=== PATIENT | male | born 2000 | race Caucasian/White ===

== ENCOUNTER 2025-07-12 13:53 | Emergency (ER) | payer OTHER, SELFPAY ==
--- NOTE | ~2025-07-12 | XR_ITS ---
Clinical history:Struck with mallet at tip of the finger EXAM:X-ray finger second left minimum 2 views TECHNIQUE:4 images of the left second digit were obtained. Comparisons:None available FINDINGS: [ No significant degenerative change.] [ No radiographic evidence for an acute fracture or dislocation.] There is a 2 mm radiopaque density in the soft tissues along the radial and volar aspect of the PIP joint of the second digit. Differential includes radiopaque foreign body or artifact. [ No sclerotic or destructive bone lesions.] Soft tissue swelling about the second digit. IMPRESSION: 1. No fracture identified. 2. There is a 2 mm radiopaque density in the soft tissues along the radial and volar aspect of the PIP joint of the second digit. Differential includes radiopaque foreign body or artifact. If symptoms persist or worsen consider a short-term follow-up study or additional imaging for further assessment. Reviewed, dictated and finalized at location Q. IMPRESSION: 1. No fracture identified. 2. There is a 2 mm radiopaque density in the soft tissues along the radial and volar aspect of the PIP joint of the second digit. Differential includes radiop aque foreign body or artifact. If symptoms persist or worsen consider a short-term follow-up study or addition al imaging for further assessment.
[2025-07-12 14:12] VITALS: BP 141/91; PULSE 75; RESP 16; TEMP 36.8; O2SAT 100
[2025-07-12] MEDS: TETANUS,DIPHTHERIA,AC PERTUSSIS ADULT (0.5 ML) BOOSTRIX IM (14:47)
[2025-07-12] MEDS: LIDOCAINE 1% LOCAL INJ 2 ML AMPUL 6 ML INFILTRATE (14:51)
--- NOTE | 2025-07-12 15:35 | ED.UPPEXIN ---
HPI - Extremity Injury (Upper) General Chief Complaint: Extremity Injury, Upper Stated Complaint: Smashed finger with mallet Time Seen by Provider: 07/12/25 14:34 Source: patient and RN notes reviewed Mode of arrival: ambulatory Limitations: no limitations History of Present Illness HPI narrative: Patient presents today complaining of an injury to his left 2nd finger. This prior to arrival, patient smashed his finger with a mallet that was on top of a concrete block. Denies numbness or tingling in the finger. Currently pain-free. Not up-to-date on tetanus vaccine. Related Data Home Medications ?Medication ?Instructions ?Recorded ?Confirmed ?Last Taken ?Type No Home Medications 07/12/25 07/12/25 Unknown History Allergies Allergy/AdvReac Type Severity Reaction Status Date / Time No Known Allergies Allergy Verified 07/12/25 14:09 PMFSH Comments At time of signature, I have reviewed and agree with nursing past medical, surgical, social and family history unless otherwise noted. Please see nursing chart for further information. There is no relevant family history pertinent to the presenting complaint Exam Narrative: GENERAL: Well-appearing, well-nourished, and in no acute distress. HEAD: Normocephalic, atraumatic. EYES: EOMI. No redness or drainage. Conjunctivae normal. ENT: Mucous membranes pink and moist. NECK: Normal AROM. CHEST: No respiratory distress. EXTREMITIES:Left 2nd finger: 2.5cm partial thickness flap laceration to the pad of the distal phalanx. Flap does not penetrate to the fatty tissue. Distal sensation intact. Capillary refill normal. Full range of motion of the finger. See procedure note for repair. SKIN: Warm, dry, no rash. Capillary refill normal. Normal skin turgor. NEURO: No focal deficits. Alert and oriented x3. Gait steady. PSYCH: Normal affect. No signs of depression or anxiety. Course Course Level of Care: Express Care Visit Vital Signs Vital signs: Vital Signs Temperature 98.3 F 07/12/25 14:12 Pulse Rate 75 07/12/25 14:12 Respiratory Rate 16 07/12/25 14:12 Blood Pressure 141/91 H 07/12/25 14:12 Pulse Oximetry 100 07/12/25 14:12 Temperature 98.3 F 07/12/25 14:12 Pulse Rate 75 07/12/25 14:12 Respiratory Rate 16 07/12/25 14:12 Blood Pressure 141/91 H 07/12/25 14:12 Pulse Oximetry 100 07/12/25 14:12 Reviewed Procedures Laceration Laceration 1: Date: 07/12/25 Time: 15:35 Site: hand (left second finger) Size (cm): 2.5 Description: linear and flap Depth: simple, single layer Pre-repair: wound explored, irrigated extensively and minor debridement ====== Skin Level ====== Skin layer closed with: prolene Size (cm): 5-0 Number of sutures: 7 ====== Subcutaneous Layer ====== ====== Muscle Layer ====== ====== Tendon Layer ====== Nerve Block Nerve Block 1: Nerve block date: 07/12/25 Nerve block time: 14:58 Local Anesthetic: lidocaine 1% Amount of anesthesia used (mL): 6 Side: left Nerve Blocks: digital Procedure Successful: Yes Patient Tolerated Procedure: well Complications: none MDM - Extremity Injury (Upper) MDM Narrative Medical decision making narrative: Patient presents today complaining of an injury to his left 2nd finger. Just prior to arrival, patient smashed his finger with a mallet that was on top of a concrete block. Upon exam, patient has a 2.5 cm partial thickness flap laceration to the distal phalanx pad of the finger. Flap was irrigated extensively with saline under pressure. Foreign body (likely tiny rock) noted on x-ray removed with forceps. Laceration repaired after digital block. X-ray negative for fracture. Tetanus shot given. Care instructions given. Vital signs stable. Differential Diagnosis Differential diagnosis: Likely other (Finger fracture, laceration, skin avulsion) Imaging Data Radiologist's impression: ITS Impressions Finger X-Ray 07/12/25 14:29 IMPRESSION: 1. No fracture identified. 2. There is a 2 mm radiopaque density in the soft tissues along the radial and volar aspect of the PIP joint of the second digit. Differential includes radiopaque foreign body or artifact. If symptoms persist or worsen consider a short-term follow-up study or additional imaging for further assessment. Critical Care Time Critical Care Time Critical Care Time: No Discharge Plan Discharge Clinical Impression: Crush injury to finger Laceration of finger Qualifiers: Encounter type: initial encounter Finger: index finger Damage to nail status: without damage Foreign body presence: with foreign body Laterality: left Qualified Code(s): S61.221A - Laceration with foreign body of left index finger without damage to nail, initial encounter Patient Disposition: Home Condition: Stable Instructions: Care For Your Stitches (ED) Additional Instructions: Your sutures need to be removed in 7-10 days. Wear the dressing that has been applied for the first 24 hours to allow a scab to start forming. After this, you may remove and wash as normal with soap and water. Do NOT wash with peroxide or alcohol. Do NOT apply antibiotic ointment. Do not submerge your sutures in standing water such as pools, hot tubs, or sinks until they are removed. Take tylenol or ibuprofen at home for pain, if able. Follow up with your PCP with any signs of infection such as redness, swelling, increased pain, or drainage. Your tetanus shot has been updated today. Patient Language: Latvian Prescriptions: No Action No Home Medications Follow-up/Referrals: PHYSICIAN,ANIMAL FEEDER [Primary Care Provider, Internal Medicine] Time of Disposition: 15:35
== END 2025-07-12 15:45 | disposition home or self-care (01) ==
PROVIDERS: Emergency Provider Nurse Practitioner
DX: S67.191A Crushing injury of left index finger, initial encounter (principal); S61.211A Laceration without foreign body of left index finger without damage to nail, initial encounter; W27.8XXA Contact with other nonpowered hand tool, initial encounter; Z23 Encounter for immunization
CPT/HCPCS: 12001; 73140; 90471; 90715; 99203; G0463; J2003